=== PATIENT | male | born 2000 | race Caucasian/White ===

== ENCOUNTER 2024-11-12 19:57 | Emergency (ER) | payer BC, SELFPAY ==
[2024-11-12 20:00] VITALS: BP 177/92
[2024-11-12 22:42] VITALS: BMI 40.7
--- NOTE | 2024-11-12 22:44 | ED.SKININJ ---
HPI-Injury
General
Chief Complaint: Skin Problem
Source: patient
Exam Limitations: none
Time Seen by Provider: 11/12/24 22:32
History of Present Illness-Injury
Initial Injury comments:
24-year-old male otherwise healthy presents complaining of pain superior to his bellybutton that resulted in drainage of a bloody material. He states he now feels better. This was persistent over the past 2 to 3 days. He denied fevers or chills.
No vomiting. No other complaints at this time
Past History
Social History
Drug: None
Phy Exam
Physical Exam
Physical Exam:
General: Well-appearing male no acute distress
Skin: Erythema noted to the superior aspect of the umbilicus. There is purulent material within the umbilicus but no fluctuance within the skin. No tenderness. deep palpation of the abdomen provide no tendernesss or guarding. The abdomen is
nondistended.
Extremities: No cyanosis
Course
Orders/Labs/Results
Orders:
Orders
11/12/24 22:42
Sulfamethox./Trimethoprim Ds [Bactrim Ds 800 mg/160 mg] 1 tablet PO NOW STA
Vital Signs
Initial and Last Documented VS:
Initial Vital Signs
Temp Pulse Resp BP Pulse Ox
98.2 F 86 16 177/92 98
11/12/24 20:00 11/12/24 20:00 11/12/24 20:00 11/12/24 20:00 11/12/24 20:00
Last Documented Vital Signs
Temp Pulse Resp BP Pulse Ox
98.2 F 86 16 177/92 98
11/12/24 20:00 11/12/24 20:00 11/12/24 20:00 11/12/24 20:00 11/12/24 22:46
MDM/Problems Addressed
Differential Diagnosis Includes:
Patient now is feeling better after swelling around his umbilicus resulted in purulent drainage. I suspect he had an abscess in his skin that drained on its own. Benign abdominal exam otherwise. No indication for imaging. Given the residual
erythema surrounding the area we will treat with antibiotics.
*Pulse Oximetry
SaO2: 98
Oxygen Mode of Delivery: Room air
Patient hypoxic: no
*Critical Care Note
Total Time (30-74mins, 75-104mins- exclusive of procedures): Not Applicable
ED Attending Note
-
Portions of this chart may have been created with voice recognition software.� Occasional wrong word or��sound alike� substitutions may have occurred due to the inherent limitations of voice recognition software.
Discharge Plan
Departure
Patient Disposition: Home (Routine Discharge)
Date of Disposition: 11/12/24
Time of Disposition: 22:55
Patient with high blood pressure during this ER visit?: No
Discharge Problem:
Abscess
Instructions: Skin Abscess
Prescriptions:
New
sulfamethoxazole-trimethoprim [Bactrim DS] 800-160 mg tablet
1 tab PO BID Qty: 10 0RF
Referrals:
Jerardo Damon DO [Family Provider, Family Practice]
Activity Restrictions/Additional Instructions:
Apply warm compresses to the area. Use antibiotic as directed. Return if worse otherwise
Interventions
Interventions:
*Risk Screen - Suicide Last Done: 11/12/24 20:00
*General Assessment Last Done: 11/12/24 22:42
*Neglect/Abuse Screening Last Done: 11/12/24 20:00
*ED- Fall Risk Assessment Last Done: 11/12/24 22:42
*ED COVID-19 Vaccine History Last Done: 11/12/24 22:42
ED-Skin Assessment Last Done: 11/12/24 22:42
Discharge Date and Time
Print Language: IRAQI
[2024-11-12] MEDS: BACTRIM DS 800 MG/160 MG 1 TABLET PO (22:49)
== END 2024-11-12 23:06 | disposition home or self-care (01) ==
LOC: EMR 19:57
PROVIDERS: EMERGENCY PHYSICIAN Student in an Organized Health Care Education/Training Program; FAMILY PHYSICIAN Family Medicine
DX: L02.216 Cutaneous abscess of umbilicus (principal)
CPT/HCPCS: 99283